=== PATIENT | male | born 1975 | race Caucasian/White ===

== ENCOUNTER 2017-02-15 02:25 | Emergency (ER) | payer SELFPAY ==
[2017-02-15 02:31] VITALS: BP 126/72; PULSE 82; TEMP 97.9; BMI 28.2
--- NOTE | 2017-02-15 02:39 | PDOC ---
History of Present Illness - General Chief Complaint: Pain Stated Complaint: L RIB PAIN Time Seen by Provider: 02/15/17 02:32 - History of Present Illness Initial Comments: 02/15/17 02:42 This otherwise healthy 41-year-old man presents with a history of left-sided chest pain after trauma: Earlier today, as patient was removing air-conditioner from window, he lost his balance and fell against the air-conditioner, left anterior chest impacting the unit. He had pain initially but in the last few hours since he has been trying to go to sleep, he has had increasing discomfort. Pain worse with movement and deep breathing as well as lying on his left side. No previous history of chest wall injury. No history of asthma or other chronic respiratory conditions. Patient also stretched his right lower leg as he was falling and has some discomfort in the posterior calf on the right side. No other injuries. Patient is scheduled to fly to [place] tomorrow Patient currently smokes: Approximately 1 pack per week. Past History - Past Medical History Allergies/Adverse Reactions: Allergies Allergy/AdvReac Type Severity Reaction Status Date / Time No Known Allergies Allergy Verified 04/13/13 21:03 Home Medications: Ambulatory Orders Diclofenac Sodium [Voltaren -] 75 mg PO BID PRN #20 tablet. 02/15/17 Oxycodone HCl/Acetaminophen [Percocet 5-325 mg Tablet] 1 tab PO Q6H PRN #10 tablet MDD 3 tabs 02/15/17 - Psycho/Social/Smoking Cessation Hx Anxiety: No Suicidal Ideation: No Smoking Status: No Smoking History: Former smoker Have you smoked in the past 12 months: No Number of Cigarettes Smoked Daily: 0 Information on smoking cessation initiated: No Hx Alcohol Use: No Drug/Substance Use Hx: No Substance Use Type: None Review of Systems - Review of Systems Able to Perform ROS?: Yes Comments:: 12 point review of systems is negative except for what is noted in the history of present illness *Physical Exam - Vital Signs Last Vital Signs Temp Pulse Resp BP Pulse Ox 97.9 F 82 14 126/72 98 02/15/17 02:28 02/15/17 02:28 02/15/17 02:28 02/15/17 02:28 02/15/17 02:28 - Physical Exam Comments: GENERAL: Adult male, in mild distress secondary to left-sided chest, speaking in full sentences; no acute respiratory distress HEAD: Normal with no signs of trauma. EYES: PERRLA, EOMI, sclera anicteric, conjunctiva clear. ENT: Ears normal, nares patent, oropharynx clear without exudates. Dry mucous membranes. NECK: Normal range of motion, supple without lymphadenopathy, JVD, or masses. LUNGS: Breath sounds equal, clear to auscultation bilaterally. No wheezes, and no crackles. CHEST WALL: Point tenderness left anterior sixth rib just lateral to midclavicular line; no step offs , no crepitus HEART:Regular rate and rhythm, normal S1 and S2 without murmur, rub or gallop. ABDOMEN:.normal bowel sounds No guarding,tenderness or rebound.No masses No distention. EXTREMITIES: Normal range of motion, no edema. No clubbing or cyanosis. No erythema, or tenderness. NEUROLOGICAL: Cranial nerves II through XII grossly intact. Normal speech. No focal neurological deficits. MUSCULOSKELETAL: Back non-tender to palpation, no CVA tenderness SKIN: Warm, Dry, normal turgor, no rashes or lesions noted. Medical Decision Making - Medical Decision Making Left rib series x-ray performed. No evidence of fracture of ribs. PA view of the chest shows normal cardiac and great vessel contour. No evidence of acute lung pathology/effusion. Clinical presentation most consistent with rib contusion (likely sixth rib) .Toradol 60 mg IM given Toradol 60 mg IM given Patient will be discharged with instructions to avoid strenuous activity involving upper body for the next week. prescriptions for diclofenac 75 mg twice a day as needed for moderate pain and Percocet 5/325 (#10) to be used for severe pain up to 3 times a day will be transmitted to patient's pharmacy. Patient has leaving for [employer] vacation in the next warty 8 hours: Patient will be away for 3 weeks. He should go to nearest medical facility if he has severe pain or shortness of breath while abroad. He should follow-up with his general doctor when he returns home. *DC/Admit/Observation/Transfer Diagnosis at time of Disposition: Contusion of rib on left side Qualifiers: Encounter type: initial encounter Qualified Code(s): S20.212A - Contusion of left front wall of thorax, initial encounter - Discharge Dispostion Disposition: HOME Condition at time of disposition: Stable - Prescriptions Prescriptions: Oxycodone HCl/Acetaminophen [Percocet 5-325 mg Tablet] 1 tab PO Q6H PRN #10 tablet MDD 3 tabs PRN Reason: Severe Pain Diclofenac Sodium [Voltaren -] 75 mg PO BID PRN #20 tablet.dr MARTEL Reason: Pain - Patient Instructions Printed Discharge Instructions: DI for Rib Contusion Additional Instructions: Avoid strenuous upper body exertion as much as possible over the next week Diclofenac 75 mg twice a day as needed for moderate pain Percocet 5/325 every 6 hours up to 3 times a day for severe pain (avoid activities that require your full attention) Follow-up with your general doctor when you return from [place]. Go to nearest medical facility if you have severe pain/shortness of breath while you are on vacation
[2017-02-15] MEDS ORDERED: KETOROLAC TROMETHAMINE 60 MG/2 ML VIAL IM ONE (03:00)
== END 2017-02-15 03:15 | disposition home or self-care (01) ==
LOC: FER 02:25
PROC: 3E0233Z Introduction of Anti-inflammatory into Muscle, Percutaneous Approach (ICD-10-PCS; principal; 2017-02-15)
DX: S20.212A Contusion of left front wall of thorax, initial encounter (principal); W22.01XA Walked into wall, initial encounter; Y93.89 Activity, other specified; Y92.9 Unspecified place or not applicable; Z87.891 Personal history of nicotine dependence
CPT/HCPCS: 71101-TC; 99282-25